=== PATIENT | male | born 1985 | race Caucasian/White ===

== ENCOUNTER 2019-07-25 17:20 | Emergency (ER) | payer SELFPAY ==
[2019-07-25 17:38] VITALS: BP 151/95
--- NOTE | 2019-07-25 17:52 | ED Physician Documentation ---
History of Present Illness - Stated complaint Stated Complaint: MOUTH PX - Chief complaint Chief Complaint: Heent - History obtained from History obtained from: Patient (This pleasant 35-year-old male comes in today with chief complaint of lower left dental pain for the past 3 days. He is not from around this region, but is probably over here and came over with his family to wait out the 2-week self quarantine mandated by the state. Over the weekend he states that he broke a crown off of a lower tooth. Since then his pain is very consistent 6 out of 10, he is been taking ibuprofen 800 mg 3-4 times a day, taking Tylenol extra strength 3-4 times a day as well with moderate pain relief. He has tried to call local dental offices to get in to be seen, but since he is not from this area he does not have an established dentist this they will take approximately a month to be seen as this is "not an emergency. Patient denies fevers, chills, nausea, vomiting, difficulty swallowing, foul taste in his mouth.) Review of Systems Constitutional: denies: Fever, Chills, Fatigue Eyes: reports: Reviewed and negative Ears: reports: Reviewed and negative Nose: reports: Reviewed and negative Throat: reports: Dental pain / toothache. denies: Oral lesions / sores, Sore throat, Swollen tonsils Cardiac: reports: Reviewed and negative Respiratory: reports: Reviewed and negative GI: reports: Reviewed and negative : reports: Reviewed and negative Skin: reports: Reviewed and negative Musculoskeletal: denies: Neck pain Immunocompromised: reports: Reviewed and negative PD PAST MEDICAL HISTORY - Past Medical History Past Medical History: No - Present Medications Home Medications: Ambulatory Orders Medication Instructions Recorded Confirmed Hydrocodone/Acetaminophen 1 - 2 each PO Q6H PRN #14 tablet 07/25/19 [Hydrocodon-Acetaminophen 5-325] Penicillin V Potassium 500 mg PO Q6HR #40 tablet 07/25/19 - Allergies Allergies/Adverse Reactions: Allergies Allergy/AdvReac Type Severity Reaction Status Date / Time No Known Drug Allergies Allergy Verified 07/25/19 17:38 - Social History Does the pt smoke?: Yes Smoking Status: Current every day smoker PD ED PE NORMAL - General General: Alert and oriented X 3, No acute distress, Well developed/nourished - HEENT HEENT: Atraumatic, PERRL, EOMI, Ears normal, Moist mucous membranes, Pharynx benign - Neck Neck: No adenopathy - Cardiac Cardiac: RRR, No murmur - Respiratory Respiratory: No respiratory distress, Clear bilaterally - Abdomen Abdomen: Soft, Non tender - Neuro Neuro: test carrier 2-12 intact PD ED PE EXPANDED - HEENT HEENT: Dental decay, Dental trauma, Dental TTP (Tooth #19, is a tooth of concern. Global dental decay throughout mouth. Multiple teeth missing.) Results - Vitals Vitals: Vital Signs - 24 hr 07/25/19 17:35 Temperature 36.5 C Heart Rate 84 Respiratory 16 Rate Blood Pressure 151/95 H O2 Saturation 99 Oxygen O2 Source Room air PD MEDICAL DECISION MAKING - ED course Complexity details: re-evaluated patient, considered differential, d/w patient Departure - Departure Disposition: 01 Home, Self Care Clinical Impression: Dental abscess Condition: Good Instructions: ED Tooth Pain, ED Abscess Dental Prescriptions: Penicillin V Potassium 500 mg PO Q6HR #40 tablet Hydrocodone/Acetaminophen [Hydrocodon-Acetaminophen 5-325] 1 - 2 each PO Q6H PRN #14 tablet PRN Reason: pain Comments: As I discussed with you in the ER today, you need to get in to see a dentist to get your tooth extracted properly. You do have an infection on the lower left mandible, as evidenced by swelling tenderness or redness. I do not see anything to drain down there. I am going to start you on antibiotics that you will take for the next 10 days. Continue to take the ibuprofen and Tylenol as you have been, make sure you do not take more than the maximum allotted dose daily. I am also can give you some painkiller to take over the next 2 to 3 days.When you are taking the hydrocodone painkiller, make sure you do not take any extra Tylenol with it, as this can lead to too much Tylenol in a 24-hour. once antibiotic is in your system for a few days and will reduce the swelling you have a lot less pain. In addition to oral care that you are doing.I also recommended she do warm salt water gargle several times a day to help clear some bacteria in your mouth as well.
== END 2019-07-25 18:15 | disposition home or self-care (01) ==
LOC: ED 17:20
DX: K04.7 Periapical abscess without sinus (principal); K02.9 Dental caries, unspecified; F17.200 Nicotine dependence, unspecified, uncomplicated
CPT/HCPCS: 99282; 99284